=== PATIENT | female | born 1940 | race Caucasian/White ===

== ENCOUNTER → 2016-05-20 | Outpatient (CLI) | payer MEDICARE, OTHER ==
[~2016-05-20] MED LIST: ARIMIDEX1 MG PO; AVALIDE 12.5 MG1 TAB PO; CITRACAL + D CA1 TAB PO; CITRACAL PLUS1 TAB PO; COSAMIN DS 4001 TAB PO; COZAAR 50MG50 MG/TAB PO; JUICE PLUS; MOBIC 7.5MG7.5 MG PO; OMEGA-3 FISH1000 MG PO; PROBIOTIC FORMU1 CAP PO; PROBIOTICA100 Milli1; PROTONIX 40MG T40 MG PO; SYNTHROID0.075 MG/T PO; SYNTHROID0.088 MG/T PO; SYNTHROID0.1 MG/TAB PO; SYNTHROID0.112 MG/T PO; TOPROL XL 25MG25 MG PO; TURMERIC500 MG PO; VITAMIN D1000 IU PO; VITAMIN D31000 IU PO; [UNRECOGNIZED DRUG - OTHER] PO
== END ==
LOC: MC.RAD 13:00
DX: Z12.31 Encounter for screening mammogram for malignant neoplasm of breast (principal); Z85.3 Personal history of malignant neoplasm of breast

== ENCOUNTER → 2016-06-09 | Outpatient (CLI) | payer MEDICARE, OTHER ==
[~2016-06-09] VITALS: Ht 154.9 cm; Wt 83.7 kg
[2016-06-09 06:02] VITALS: BP 178/103; PULSE 78
== END ==
LOC: COL.CARD 05:45
DX: R94.31 Abnormal electrocardiogram [ECG] [EKG] (principal); R06.09 Other forms of dyspnea
CPT/HCPCS: A9502

== ENCOUNTER → 2016-08-27 | Outpatient (CLI) | payer MEDICARE, OTHER | LOC: COL.CARD 05:45 | DX: Z01.89 Encounter for other specified special examinations (principal) ==

== ENCOUNTER → 2017-05-24 | Outpatient (CLI) | payer MEDICARE, OTHER | LOC: MC.RAD 08:30 | DX: Z12.31 Encounter for screening mammogram for malignant neoplasm of breast (principal); Z85.3 Personal history of malignant neoplasm of breast; Z92.3 Personal history of irradiation; Z90.11 Acquired absence of right breast and nipple ==

== ENCOUNTER → 2018-05-26 | Outpatient (CLI) | payer MEDICARE, OTHER | LOC: MC.RAD 10:13 | DX: Z12.31 Encounter for screening mammogram for malignant neoplasm of breast (principal); C50.311 Malignant neoplasm of lower-inner quadrant of right female breast ==

== ENCOUNTER → 2018-08-22 | Outpatient (CLI) | payer MEDICARE, OTHER | LOC: COL.RAD 07:02 | DX: K82.8 Other specified diseases of gallbladder (principal) | CPT/HCPCS: A9537 ==

== ENCOUNTER → 2018-11-30 | Outpatient (CLI) | payer MEDICARE, OTHER | LOC: COL.RAD 10:00 | DX: M79.644 Pain in right finger(s) (principal); M79.645 Pain in left finger(s) | CPT/HCPCS: J3301; Q9967 ==

== ENCOUNTER → 2019-06-29 | Outpatient (CLI) | payer MEDICARE, OTHER | LOC: MC.RAD 05-30 09:30 | DX: Z12.31 Encounter for screening mammogram for malignant neoplasm of breast (principal); C50.311 Malignant neoplasm of lower-inner quadrant of right female breast; Z98.890 Other specified postprocedural states ==

== ENCOUNTER → 2019-11-10 | Outpatient (CLI) | payer MEDICARE | LOC: COL.RAD 13:15 | DX: Z01.812 Encounter for preprocedural laboratory examination (principal); R59.0 Localized enlarged lymph nodes; R91.1 Solitary pulmonary nodule | CPT/HCPCS: Q9967 ==

== ENCOUNTER → 2019-11-21 | Outpatient (CLI) | payer MEDICARE, OTHER ==
[~2019-11-21] MED LIST changes: +ASPIRIN 81M81 MG/TA2 PO; +BYSTOLIC10 MG PO; +CALCIUM CARBON650 M2 PO; +CARDIZEM LA240 MG PO; +CRESTOR 10MG10 MG PO; +DEXILANT60 MG PO; +PRINZIDE 12.5 M1 TAB PO; +THE MEDICINE S200 M2 PO; +VITAMIND3 5000 PO; +ZYLOPRIM 300MG300 MG PO; +[UNRECOGNIZED DRUG - OTHER]
[2019-11-21 08:15] VITALS: BP 155/81; PULSE 75
[2019-11-21 09:05] VITALS: BP 159/88; PULSE 79
[2019-11-21 09:10] VITALS: BP 143/73; PULSE 68
[2019-11-21 09:15] VITALS: BP 161/80; PULSE 74
[2019-11-21 09:20] VITALS: BP 156/82; PULSE 63
[2019-11-21 09:30] VITALS: BP 121/69; PULSE 63
== END ==
LOC: COL.RAD 08:15
DX: C50.919 Malignant neoplasm of unspecified site of unspecified female breast (principal); R59.0 Localized enlarged lymph nodes; R91.1 Solitary pulmonary nodule

== ENCOUNTER 2019-12-27 14:54 | Outpatient (RCR) | payer MEDICARE, OTHER ==
[2019-12-27] VITALS (9 sets, daily range): BP systolic 102–131; BP diastolic 51–84; PULSE 60–86; TEMP 97.9–98.5
== END 2019-12-27 19:11 | disposition home or self-care (01) ==
LOC: EUO 14:54
DX: C50.311 Malignant neoplasm of lower-inner quadrant of right female breast (principal)
CPT/HCPCS: J7050; P9040

== ENCOUNTER → 2020-01-18 | Outpatient (CLI) | payer MEDICARE, OTHER | LOC: COL.RAD 10:03 | DX: C50.919 Malignant neoplasm of unspecified site of unspecified female breast (principal); R91.8 Other nonspecific abnormal finding of lung field; Z98.82 Breast implant status | CPT/HCPCS: Q9967 ==

== ENCOUNTER 2020-02-15 08:01 | Outpatient (RCR) | payer MEDICARE, OTHER ==
[2020-02-15] VITALS (8 sets, daily range): BP systolic 113–136; BP diastolic 54–68; PULSE 59–65; TEMP 98.3–98.8
[~2020-02-15] VITALS: Ht 154.9 cm; Wt 80.8 kg
[~2020-02-15 08:01] MED LIST changes: -SYNTHROID0.088 MG/T PO
[2020-02-15] MEDS ORDERED: CORDARONE200 MG/TAB PO (10:04)
[2020-02-15] MEDS ORDERED: KISQALI400 MG PO (10:05)
[2020-02-15] MEDS ORDERED: DOXYCYCLINE 10100 MG PO (10:06)
--- NOTE | 2020-02-15 10:59 | NUR ---
PT TOLERATING TRANSFUSION WELL. DENIES NEEDS AT THIS TIME. PT IS SITTING UP IN RECLINER, EATING A SNACK. CALL LIGHT IN REACH.
--- NOTE | 2020-02-15 13:38 | NUR ---
PT HAS TOLERATED TRANSFUSIONS WELL, WITH NO ADVERSE REACTION. 2ND UNIT IS IN, AND LINE IS BEING FLUSHED AT THIS TIME. PT IS PREPARING FOR DEPARTURE. SHE HAS BEEN UP DURING TRANSFUSION AND IS STEADY ON HER FEET. DEPARTURE PENDING CLEARING OF LINE AND REMOVAL OF PERIPHERAL IV.
== END 2020-02-15 14:15 | disposition home or self-care (01) ==
LOC: EUO 08:01
DX: C50.311 Malignant neoplasm of lower-inner quadrant of right female breast (principal); C77.0 Secondary and unspecified malignant neoplasm of lymph nodes of head, face and neck; C77.1 Secondary and unspecified malignant neoplasm of intrathoracic lymph nodes; C78.02 Secondary malignant neoplasm of left lung; D64.9 Anemia, unspecified
CPT/HCPCS: J7050; P9016

== ENCOUNTER 2020-03-29 07:30 | Outpatient (RCR) | payer MEDICARE, OTHER ==
[2020-03-29] VITALS (11 sets, daily range): BP systolic 120–139; BP diastolic 51–64; PULSE 60–71; TEMP 97.3–98.3
[~2020-03-29] VITALS: Ht 154.9 cm; Wt 79.7 kg
[~2020-03-29 07:30] MED LIST changes: +CORDARONE200 MG/TAB PO; +DOXYCYCLINE 10100 MG PO; +KISQALI400 MG PO
== END 2020-03-29 14:45 | disposition home or self-care (01) ==
LOC: EUO 07:30
DX: C50.311 Malignant neoplasm of lower-inner quadrant of right female breast (principal)
CPT/HCPCS: J7050; P9016

== ENCOUNTER → 2020-04-16 | Outpatient (CLI) | payer MEDICARE, OTHER ==
[~2020-04-16] MED LIST changes: -PROBIOTIC FORMU1 CAP PO; +PROBIOTIC-MAJOR PO
== END ==
LOC: COL.RAD
DX: J38.00 Paralysis of vocal cords and larynx, unspecified (principal)

== ENCOUNTER 2020-04-18 08:13 | Outpatient (RCR) | payer MEDICARE, OTHER ==
[2020-04-18] VITALS (13 sets, daily range): BP systolic 100–141; BP diastolic 46–76; PULSE 60–93; TEMP 98.1–98.4
[~2020-04-18] VITALS: Ht 154.9 cm; Wt 76.3 kg
== END 2020-04-18 13:21 | disposition home or self-care (01) ==
LOC: EUO
DX: C50.311 Malignant neoplasm of lower-inner quadrant of right female breast (principal); D64.9 Anemia, unspecified
CPT/HCPCS: J7050; P9016

== ENCOUNTER 2020-05-08 07:30 | Outpatient (RCR) | payer MEDICARE, OTHER ==
[~2020-05-08] VITALS: Ht 154.9 cm; Wt 76.0 kg
[2020-05-08] VITALS (11 sets, daily range): BP systolic 82–136; BP diastolic 46–86; PULSE 60–75; TEMP 97.5–98.7
--- NOTE | 2020-05-08 11:01 | NUR ---
20 cc total of blood return from red port, flushed with NS.
--- NOTE | 2020-05-08 12:04 | NUR ---
infusion completed, line flushed and iv d'cd
== END 2020-05-16 16:17 | disposition home or self-care (01) ==
LOC: EUO 07:30
DX: C50.311 Malignant neoplasm of lower-inner quadrant of right female breast (principal); D64.9 Anemia, unspecified
CPT/HCPCS: J7050; P9016

== ENCOUNTER 2020-05-17 08:30 | Outpatient (RCR) | payer MEDICARE, OTHER ==
[2020-05-17] VITALS (9 sets, daily range): BP systolic 98–128; BP diastolic 57–76; PULSE 59–178; TEMP 97.7–97.9
[~2020-05-17] VITALS: Ht 154.9 cm; Wt 76.8 kg
== END 2020-05-17 12:50 | disposition home or self-care (01) ==
LOC: EUO 08:30 → EDSTATUS 10:00 → EUO 10:00
DX: C50.311 Malignant neoplasm of lower-inner quadrant of right female breast (principal); C77.0 Secondary and unspecified malignant neoplasm of lymph nodes of head, face and neck; C77.1 Secondary and unspecified malignant neoplasm of intrathoracic lymph nodes; C78.02 Secondary malignant neoplasm of left lung; D64.9 Anemia, unspecified
CPT/HCPCS: J7050; P9016

== ENCOUNTER 2020-06-03 08:45 | Outpatient (RCR) | payer MEDICARE, OTHER | END 2020-06-23 | disposition home or self-care (01) | LOC: WSST | DX: J38.00 Paralysis of vocal cords and larynx, unspecified (principal) ==

== ENCOUNTER 2020-07-24 09:00 | Outpatient (RCR) | payer MEDICARE, OTHER | END 2020-09-22 | disposition home or self-care (01) | LOC: WSST | DX: R49.0 Dysphonia (principal); R13.13 Dysphagia, pharyngeal phase; J38.00 Paralysis of vocal cords and larynx, unspecified ==

== ENCOUNTER → 2020-08-01 | Outpatient (CLI) | payer MEDICARE, OTHER | LOC: COL.RAD 07:52 | DX: C50.311 Malignant neoplasm of lower-inner quadrant of right female breast (principal); C79.51 Secondary malignant neoplasm of bone; R91.1 Solitary pulmonary nodule; R59.0 Localized enlarged lymph nodes | CPT/HCPCS: Q9967 ==

== ENCOUNTER 2020-11-14 10:00 | Outpatient (RCR) | payer MEDICARE, OTHER ==
[~2020-11-14] VITALS: Ht 154.9 cm; Wt 74.0 kg
[2020-11-14] VITALS (9 sets, daily range): BP systolic 115–162; BP diastolic 64–78; PULSE 60–66; TEMP 97.7–98.9
== END 2020-11-14 15:30 | disposition home or self-care (01) ==
LOC: EUO 10:00
DX: C50.311 Malignant neoplasm of lower-inner quadrant of right female breast (principal); D64.9 Anemia, unspecified
CPT/HCPCS: J7050; P9016

== ENCOUNTER 2021-01-30 23:06 | Emergency (ER) | payer MEDICARE, OTHER ==
[~2021-01-30] VITALS: Ht 154.9 cm; Wt 67.3 kg
[2021-01-30 23:14] VITALS: TEMP 98.6
[2021-01-30 23:51] LABS: BASO # 0.1 K/mm3 (0.0-0.2); EOS # 0.5 K/mm3 (0.0-0.7); GRAN # 3.8 K/mm3 (1.4-6.5); GRAN % 64.8 % (42.2-75.2); HEMOGLOBIN 12.3 g/dl (12.5-16.0); LYMPH # 0.6 K/mm3 (1.2-3.4); LYMPH % 9.5 % (20.0-51.0); MEAN CELL VOLUME 96 fl (80.0-100.0); MEAN CORPUSCULAR HEMOGLOBIN 32 pg (27-31); MEAN CORPUSCULAR HGB CONC 34 g/dl (33.0-37.0); MEAN PLATELET VOLUME 9.5 fl (7.4-10.4); MONO # 0.9 K/mm3 (0.1-0.6); MONO % 15.2 % (1.7-9.3); PLATELET COUNT 288 K/mm3 (130-400)
[2021-01-31 00:22] LABS: HEMATOCRIT 36.6 % (37.0-47.0)
[2021-01-31] MEDS ORDERED: AMOXICILLIN 8751 TAB PO (01:26)
[2021-01-31 02:21] VITALS: BP 125/69; PULSE 61
== END 2021-01-31 02:22 | disposition home or self-care (01) ==
LOC: COL.ER 23:06
PROVIDERS: Emergency Medicine
DX: R04.0 Epistaxis (principal); I25.10 Atherosclerotic heart disease of native coronary artery without angina pectoris; Z91.040 Latex allergy status; Z79.82 Long term (current) use of aspirin

== ENCOUNTER 2021-03-14 09:52 | Emergency (ER) | payer MEDICARE, OTHER ==
[~2021-03-14] VITALS: Ht 154.9 cm; Wt 63.6 kg
[~2021-03-14 09:52] MED LIST changes: +AMOXICILLIN 8751 TAB PO
[2021-03-14 10:01] VITALS: TEMP 97.8
[2021-03-14 11:22] VITALS: BP 131/54; PULSE 64
== END 2021-03-14 11:22 | disposition home or self-care (01) ==
LOC: COL.ER 09:52
DX: M79.604 Pain in right leg (principal); Z88.5 Allergy status to narcotic agent

== ENCOUNTER → 2021-05-30 | Outpatient (CLI) | payer MEDICARE, OTHER ==
[~2021-05-30] MED LIST changes: +CALCIUM PO; +CARDIZEM CD 12120 MG PO; +DIGITEK0.125 MG PO; +FASLODEX250 MG/5 M IM; +LASIX 20MG TABL20 MG PO; +PIQRAY1 EACH PO; +PROTONIX20 MG PO; +XGEVA120 MG/1.7 SQ; +ZOFRAN ODT4 MG PO; +ZYRTEC 10MG10 MG PO
== END ==
LOC: COL.RAD 09:41
DX: S32.484D Nondisplaced dome fracture of right acetabulum, subsequent encounter for fracture with routine healing (principal)
CPT/HCPCS: A9503

== ENCOUNTER 2021-06-04 10:45 | Emergency (ER) | payer MEDICARE, OTHER ==
[~2021-06-04] VITALS: Ht 154.9 cm; Wt 58.2 kg
[~2021-06-04 10:45] MED LIST changes: -CALCIUM PO; -LASIX 20MG TABL20 MG PO; -PROTONIX20 MG PO; -ZOFRAN ODT4 MG PO
[2021-06-04 10:46] VITALS: TEMP 98.3
[2021-06-04 11:20] LABS: HEMOGLOBIN 12.1 g/dl (12.5-16.0); MEAN CELL VOLUME 101 fl (80.0-100.0); MEAN CORPUSCULAR HEMOGLOBIN 34 pg (27-31); MEAN CORPUSCULAR HGB CONC 33 g/dl (33.0-37.0); PLATELET COUNT 287 K/mm3 (130-400); REDCELL DISTRIBUTION WIDTH-CV 15.3 % (11.5-14.5)
[2021-06-04 11:24] LABS: HEMATOCRIT 36.5 % (37.0-47.0)
[2021-06-04 11:41] LABS: ALBUMIN 3.2 gm/dL (3.4-4.8); BILIRUBIN,TOTAL 0.8 mg/dL (0.2-1.2); CALCIUM 8.5 mg/dL (8.4-10.2); CREATININE, serum 1.12 mg/dL (0.57-1.11); POTASSIUM 4.5 mmol/L (3.5-4.5)
[2021-06-04 11:56] LABS: BAND 1 % (0-10); EOSINOPHIL 1 % (0-4); LYMPHOCYTE 3 % (20.0-51.0); NEUTROPHILS 90 % (42.0-75.2)
[2021-06-04 11:57] LABS: ANISOCYTOSIS 1+; PLATELET ESTIMATE NORMAL (NORMAL)
[2021-06-04] MEDS ORDERED: ZOFRAN ODT4 MG PO (13:19)
[2021-06-04 13:58] VITALS: BP 139/78; PULSE 87
[2021-06-05] MEDS ORDERED: PROTONIX20 MG PO (07:17)
[2021-06-05] MEDS ORDERED: LASIX 20MG TABL20 MG PO (20:35)
[2021-06-05] MEDS ORDERED: CALCIUM PO (20:36)
[2021-06-07] VITALS (46 sets, daily range): O2SAT 91–98
[2021-06-08] VITALS (96 sets, daily range): O2SAT 93–97
[2021-06-11] VITALS (32 sets, daily range): O2SAT 97–100
[2021-06-13] VITALS (286 sets, daily range): O2SAT 96–100
== END 2021-06-04 13:58 | disposition home or self-care (01) ==
LOC: COL.ER 10:45
PROVIDERS: Nurse Practitioner Family
DX: K29.70 Gastritis, unspecified, without bleeding (principal); C50.919 Malignant neoplasm of unspecified site of unspecified female breast; Z91.040 Latex allergy status
CPT/HCPCS: C9113; J2405; J7040

== ENCOUNTER 2021-06-05 04:49 | Inpatient (IN) | payer MEDICARE, OTHER ==
[~2021-06-05] VITALS: Ht 154.9 cm; Wt 61.8 kg
[2021-06-05] VITALS (366 sets, daily range): BP systolic 109–111; BP diastolic 50–62; PULSE 80–91; TEMP 97.6; O2SAT 73–95
[~2021-06-05 04:49] MED LIST changes: +ZOFRAN ODT4 MG PO
[2021-06-05 05:29] LABS: ARTERIAL BLD GAS O2 SATURATION 90.7 % (92-100); ARTERIAL BLOOD GAS BASE EXCESS -4.9 (-2-2); ARTERIAL BLOOD GAS PCO2 31.8 mmHg (35-45); ARTERIAL BLOOD GAS PO2 58.5 mmHg (80-100)
[2021-06-05 05:56] LABS: HEMATOCRIT 36.6 % (37.0-47.0); HEMOGLOBIN 12.2 g/dl (12.5-16.0); MEAN CELL VOLUME 102 fl (80.0-100.0); MEAN CORPUSCULAR HEMOGLOBIN 34 pg (27-31); MEAN CORPUSCULAR HGB CONC 33 g/dl (33.0-37.0); MEAN PLATELET VOLUME 10.8 fl (7.4-10.4); PLATELET COUNT 303 K/mm3 (130-400); RED BLOOD COUNT 3.59 M/mm3 (4.10-5.30); REDCELL DISTRIBUTION WIDTH-CV 15.9 % (11.5-14.5)
[2021-06-05 06:03] LABS: INR 1.3 (0.8-3.0); PROTHROMBIN TIME 13.9 SECONDS (9.7-12.8)
[2021-06-05 06:09] LABS: BAND 18 % (0-10); LYMPHOCYTE 2 % (20.0-51.0); METAMYELOCYTE 1 % (0-0); NEUTROPHILS 75 % (42.0-75.2)
[2021-06-05 06:10] LABS: POLYCHROMASIA 1+; SCHISTOCYTES 1+; TARGET CELLS 1+; TEAR DROP CELLS 1+
[2021-06-05 06:29] LABS: BILIRUBIN,TOTAL 0.8 mg/dL (0.2-1.2); CALCIUM 8.7 mg/dL (8.4-10.2); CREATININE, serum 1.39 mg/dL (0.57-1.11); POTASSIUM 4.4 mmol/L (3.5-4.5)
[2021-06-05 06:43] LABS: TROPONIN-I 0.077 ng/mL (0.00-0.033)
[2021-06-05] MEDS ORDERED: PROTONIX20 MG PO (07:17)
[2021-06-05] MEDS ORDERED: LASIX 20MG TABL20 MG PO (20:35)
[2021-06-05] MEDS ORDERED: CALCIUM PO (20:36)
[2021-06-05 21:08] LABS: MUCOUS Present (NOT PRESENT); PH 5 (5-8); SQUAMOUS EPITHELIAL None Seen /hpf (0-10); URINE APPEARANCE Cloudy (CLEAR/HAZY); URINE BACTERIA None Seen /hpf (NONE SEEN); URINE BILIRUBIN Negative (NEGATIVE); URINE BLOOD Negative (NEGATIVE); URINE COLOR Yellow (YELLOW); URINE GLUCOSE Negative (NEGATIVE); URINE KETONE Trace (NEGATIVE); URINE LEUKOCYTE ESTERASE Trace (NEGATIVE); URINE NITRATE Negative (NEGATIVE); URINE PROTEIN(semi-quant) 1+ (NEGATIVE); URINE RBC 0-2 /hpf (0-2); URINE UROBILINOGEN Negative (NEGATIVE)
[2021-06-05 21:19] LABS: COLLECTION METHOD CLEAN CATCH
[2021-06-06] VITALS (1178 sets, daily range): BP systolic 114–143; BP diastolic 63–93; PULSE 82–100; TEMP 97–99; O2SAT 50–99
--- NOTE | 2021-06-06 00:04 | NUR ---
PATIENT'S OXYGEN SATURATIONS IN MID-HIGH 80'S WITH ANY ACTIVITY HOWEVER BREATHING DOES NOT APPEAR LABORED AT THIS TIME. SPOKE WITH ICU RT. PATIENT CONTINUES TO REFUSE OPTIFLOW/AIRVO DUE TO HER CONCERN FOR NOSEBLEEDS. PATIENT WAS EDUCATED ON IMPORTANCE OF OXYGENATION. WILL CONTINUE TO MONITOR.
--- NOTE | 2021-06-06 04:09 | NUR ---
PATIENT OFFERED BATH AND ASSISTANCE WITH ADL'S AT START OF SHIFT. PATIENT STATED SHE WOULD LIKE TO WAIT UNTIL LATER. RN OFFERED BATH AGAIN AROUND 4 AM. PATIENT STATES THAT SHE WILL "WAIT UNTIL MORNING." PATIENT CONTINUES TO REFUSE TO CHANGE OUT OF STREET CLOTHES INTO GOWN.
[2021-06-06 05:55] LABS: MEAN CELL VOLUME 100 fl (80.0-100.0); MEAN CORPUSCULAR HEMOGLOBIN 33 pg (27-31); MEAN CORPUSCULAR HGB CONC 33 g/dl (33.0-37.0); MEAN PLATELET VOLUME 10.6 fl (7.4-10.4); PLATELET COUNT 250 K/mm3 (130-400); RED BLOOD COUNT 3.29 M/mm3 (4.10-5.30); REDCELL DISTRIBUTION WIDTH-CV 15.4 % (11.5-14.5)
[2021-06-06 07:47] LABS: BAND 35 % (0-10); LYMPHOCYTE 3 % (20.0-51.0); NEUTROPHILS 57 % (42.0-75.2)
[2021-06-06 07:48] LABS: ANISOCYTOSIS 1+
--- NOTE | 2021-06-06 08:52 | NUR ---
Patient prescribed chemotherapy agent and is to be on chemo precautions when handling stool; ongoing. Notified care team and placed sign outside patient room.
--- NOTE | 2021-06-06 09:40 | NUR ---
youth accommodation support worker met with patient's daughter, Marie Scott to complete initial intake for discharge planning. Patient is currently placed in COVID isolation and being tested this am. Patient and spouse had a known exposure with a person that is COVID positive. Patient resides at home with her spouse and has a diagnosis of metastatic breast cancer. Patient's primary care provider is Dr Rodriguez. Daughter will inquire if there are advance directives and obtain copies for the hospital. Patient and spouse have two children, Marie and a son, Harvey.
--- NOTE | 2021-06-06 10:43 | NUR ---
electrical worker obtained copies of patient's Living Will and Durable Power of [employer] and placed on patient's medical record.
[2021-06-06 12:18] LABS: CREATININE, serum 1.18 mg/dL (0.57-1.11); POTASSIUM 3.8 mmol/L (3.5-4.5)
[2021-06-06 12:19] LABS: C-REACTIVE PROTEIN 46.76 mg/dL (0.00-0.50)
--- NOTE | 2021-06-06 23:01 | NUR ---
ASSESSMENT COMPLETE. PATIENT ON 100% BIPAP WITH O2 SATURATIONS IN THE HIGH 80'S, BEDSIDE RN HAS NOT SEEN SAT ABOVE 91%. PATIENT AND DAUGHTER BOTH ADAMANT THAT BIPAP MASK NEEDS TO BE REMOVED "EVERY 3O MINUTES" SO THAT THE PATIENT CAN HAVE A DRINK OF WATER. I PROVIDED EXTENSIVE EDUCATION ON WHY THIS IS NOT A SAFE IDEA. I ATTEMPTED TO GIVE THE PATIENT A BREAK FROM HER BIPAP TO DRINK HER MIRALAX. HOWEVER, EVEN WHILE ON 15L HFNC, PATIENT SATURATIONS DROPPED TO THE HIGH 70'S WITHIN A MINUTE. PATIENT PLACED BACK ON BIPAP, HOSPITALIST AWARE AND AGREES THAT PATIENT SHOULD NOT BE TAKEN OFF BIPAP TO DRINK. ALL OF THIS WAS ONCE AGAIN EXPLAINED TO THE PATIENT AND HER DAUGHTER. BOTH EXPRESSED UNDERSTANDING FOR OUR SAFETY CONCERNS. WILL CONTINUE TO MONITOR PATIENT.
[2021-06-07] VITALS (1337 sets, daily range): BP systolic 70–188; BP diastolic 44–94; PULSE 65–82; TEMP 97.1–98; O2SAT 77–100
--- NOTE | 2021-06-07 07:00 | NUR ---
BEDSIDE REPORT RECEIVED FROM ARON CLEMENTS. RN REPORTS THAT PT STRUGGLED TO KEEP SPO2 ABOUT 90% FOR MAJORITY OF NIGHT. SATS WERE ABOUT 80-87%. PT BECAME MORE LETHARGIC NIGHT WENT ON. RT SPEAKING WITH DR. VAUGHN REGUARDING ABG RESULTS AT THIS TIME. DR. VAUGHN WOULD LIKE PT'S FAMILY CALLED AND TO HAVE THEM COME IN TO DISCUSS INTUBATION. PT CURRENTLY ON BIPAP AT 100%. FC TO DEPENDENT DRAINAGE. 20G PIV TO RIGHT AC. 22G PIV TO RIGHT WRIST. PT LIES SUPINE WITH HOB ELEVATED.
[2021-06-07 07:04] LABS: ARTERIAL BLOOD GAS BASE EXCESS -6.7 (-2-2); ARTERIAL BLOOD GAS HCO3 23.3 meq/L (22-26); ARTERIAL BLOOD GAS PCO2 72.1 mmHg (35-45); ARTERIAL BLOOD GAS PO2 74.2 mmHg (80-100); ARTERIAL BLOOD GAS pH 7.13 (7.35-7.45)
[2021-06-07 07:05] LABS: ARTERIAL BLD GAS O2 SATURATION 92.8 % (92-100)
[2021-06-07 07:15] LABS: HEMOGLOBIN 11.2 g/dl (12.5-16.0); MEAN CELL VOLUME 103 fl (80.0-100.0); MEAN CORPUSCULAR HEMOGLOBIN 34 pg (27-31); MEAN CORPUSCULAR HGB CONC 33 g/dl (33.0-37.0); MEAN PLATELET VOLUME 10.3 fl (7.4-10.4); PLATELET COUNT 268 K/mm3 (130-400); RED BLOOD COUNT 3.33 M/mm3 (4.10-5.30); REDCELL DISTRIBUTION WIDTH-CV 16.2 % (11.5-14.5)
[2021-06-07 07:27] LABS: HEMATOCRIT 34.2 % (37.0-47.0)
[2021-06-07 07:34] LABS: BAND 6 % (0-10); NEUTROPHILS 87 % (42.0-75.2)
[2021-06-07 07:35] LABS: ANISOCYTOSIS 1+; LYMPHOCYTE 3 % (20.0-51.0); PLATELET ESTIMATE NORMAL (NORMAL); TARGET CELLS 1+
[2021-06-07 07:36] LABS: CALCIUM 8.1 mg/dL (8.4-10.2); CREATININE, serum 1.47 mg/dL (0.57-1.11); MAGNESIUM 2.6 mg/dL (1.6-2.6); POTASSIUM 3.9 mmol/L (3.5-4.5)
--- NOTE | 2021-06-07 08:00 | NUR ---
PT UNABLE TO MAKE DECISION FOR INTUBATION DUE TO BEING LETHARGIC AND CONFUSED. DR. VAUGHN SPOKE EXTRENSIVELY WITH PT'S , DAUGHTER, AND SON. DECISION WAS MADE BY THEM TO INTUBATE PT AND PLACE ON VENTILATOR. CONSENT WAS ALSO RECEIVED FOR CENTRAL LINE AND ARTERAL LINE AT THIS TIME.
--- NOTE | 2021-06-07 09:09 | NUR ---
PREPPING PT FOR INTUBATION AT THIS TIME. PT CURRENTLY ON BIPAP AT 100% FIO2. 0910: 100MCG FENTANYL IVP, [id number] IVP, SUCCINYLCHOLINE 80MG IV, ALL GIVEN BY FLOR ROBERTS. 0911: PT INTUBATED WITH 7.0 ETT, 22CM AT THE TEETH. GOOD COLOR CHANGE. BREATH SOUNDS VERIFIED BILATERALLY. 0913: ETT SECURED. PT CONNECTED TO VENT. 0915: DR. OQUENDO ENTERS PT'S ROOM AND BEGINS CENTRAL LINE PLACEMENT.
--- NOTE | 2021-06-07 09:27 | NUR ---
PT INTUBATED 0911, 7.0 ETT 22 @TEETH. VENT SETTINGS GIVEN PER DR VAUGHN, INC AND LEFT SETTINGS AT 450, RR24, +8, 100%. WILL FOLLOW UP WITH BLOOD GAS.
[2021-06-07 10:24] LABS: ARTERIAL BLD GAS O2 SATURATION 94.8 % (92-100); ARTERIAL BLD GAS TCO2 CT 21.1; ARTERIAL BLOOD GAS BASE EXCESS -3.9 (-2-2); ARTERIAL BLOOD GAS HCO3 20.1 meq/L (22-26); ARTERIAL BLOOD GAS PCO2 32.6 mmHg (35-45); ARTERIAL BLOOD GAS PO2 63.1 mmHg (80-100); ARTERIAL BLOOD GAS pH 7.41 (7.35-7.45)
--- NOTE | 2021-06-07 11:17 | NUR ---
Initial visit; Patient's family were thankful for prayer for Robyn and them and for suggesting Cruise Agent call family's Practice Billing Associate. Cruise Agent stayed with family until they went back into Robyn' room then checked on them again later.
[2021-06-07 15:28] LABS: ARTERIAL BLD GAS O2 SATURATION 98.7 % (92-100); ARTERIAL BLD GAS TCO2 CT 19.3; ARTERIAL BLOOD GAS BASE EXCESS -5.4 (-2-2); ARTERIAL BLOOD GAS HCO3 18.4 meq/L (22-26); ARTERIAL BLOOD GAS PO2 136.4 mmHg (80-100); ARTERIAL BLOOD GAS pH 7.39 (7.35-7.45)
--- NOTE | 2021-06-07 21:01 | NUR ---
ASSESSMET COMPLETE. PATIENT INTUBATED AND SEDATED. VITAL SIGNS STABLE. PATIENT REMAINS ON LEVOPHED. NO ACUTE DISTRESS. NO RESIDUALS FROM OG, TUBE FEEDS INCREASED TO 25ML/HR AT THIS TIME.
[2021-06-08] VITALS (1328 sets, daily range): BP systolic 114–149; BP diastolic 61–75; PULSE 81–89; TEMP 97.8–98.6; O2SAT 84–100
[2021-06-08 03:46] LABS: ARTERIAL BLD GAS O2 SATURATION 92.8 % (92-100); ARTERIAL BLD GAS TCO2 CT 22.5; ARTERIAL BLOOD GAS BASE EXCESS -2.1 (-2-2); ARTERIAL BLOOD GAS HCO3 21.5 meq/L (22-26); ARTERIAL BLOOD GAS PCO2 32.5 mmHg (35-45); ARTERIAL BLOOD GAS PO2 58.5 mmHg (80-100); ARTERIAL BLOOD GAS pH 7.44 (7.35-7.45)
[2021-06-08 05:03] LABS: HEMOGLOBIN 10.3 g/dl (12.5-16.0); MEAN CELL VOLUME 99 fl (80.0-100.0); MEAN CORPUSCULAR HEMOGLOBIN 33 pg (27-31); MEAN CORPUSCULAR HGB CONC 33 g/dl (33.0-37.0); PLATELET COUNT 252 K/mm3 (130-400); RED BLOOD COUNT 3.11 M/mm3 (4.10-5.30); REDCELL DISTRIBUTION WIDTH-CV 15.7 % (11.5-14.5)
[2021-06-08 05:06] LABS: HEMATOCRIT 30.9 % (37.0-47.0)
[2021-06-08 05:26] LABS: CALCIUM 7.5 mg/dL (8.4-10.2); CREATININE, serum 1.29 mg/dL (0.57-1.11); MAGNESIUM 2.1 mg/dL (1.6-2.6); PHOSPHOROUS 1.9 mg/dL (2.3-4.7); POTASSIUM 3.4 mmol/L (3.5-4.5)
[2021-06-08 05:27] LABS: BAND 6 % (0-10); NEUTROPHILS 90 % (42.0-75.2); NUCLEATED RED BLOOD CELL 2 (0-6); PLATELET ESTIMATE NORMAL (NORMAL)
--- NOTE | 2021-06-08 07:00 | NUR ---
BEDSIDE REPORT RECEIVED FROM ARON CLEMENTS. PT HAD UNEVENTFUL NIGHT. LEVOPHED WAS ABLE TO BE TURNED OFF. RIGHT TRIPLE LUMEN IJ IN PLACE; SEE GTT FLOW SHEET FOR INFUSIONS AND RATES. 20G PIV TO RIGHT AC. FC TO DEPENDENT DRAINAGE. 7.0 ETT 21CM AT TEETH WITH CURRENT VENT SETTINGS; FIO2 50%, RATE 24, PEEP 8, TV 450. PT ACCEPTING MECHANICAL VENTILATION; NO SIGNS OR SYMPTOMS OF DISCOMFORT. VITAL SIGNS WITHIN NORMAL LIMITS. PT LIES TURNED TO LEFT SIDE WITH HOB ELEVATED. OG TUBE IN PLACE; 52CM AT TEETH. TUBE FEEDS INFUSING AT 40ML/HR WITH Q4HR 30ML WATER FLUSHES.
[2021-06-09] VITALS (1400 sets, daily range): BP systolic 93–132; BP diastolic 49–72; PULSE 79–93; TEMP 36–36.1; O2SAT 88–100
[2021-06-09 04:58] LABS: ARTERIAL BLD GAS O2 SATURATION 97.2 % (92-100); ARTERIAL BLD GAS TCO2 CT 22.8; ARTERIAL BLOOD GAS BASE EXCESS -3.8 (-2-2); ARTERIAL BLOOD GAS HCO3 21.6 meq/L (22-26); ARTERIAL BLOOD GAS PCO2 40.4 mmHg (35-45); ARTERIAL BLOOD GAS PO2 95.3 mmHg (80-100); ARTERIAL BLOOD GAS pH 7.35 (7.35-7.45)
[2021-06-09 05:15] LABS: MEAN CELL VOLUME 98 fl (80.0-100.0); MEAN CORPUSCULAR HGB CONC 34 g/dl (33.0-37.0); PLATELET COUNT 210 K/mm3 (130-400); RED BLOOD COUNT 2.91 M/mm3 (4.10-5.30); REDCELL DISTRIBUTION WIDTH-CV 16.1 % (11.5-14.5)
[2021-06-09 05:22] LABS: HEMATOCRIT 28.5 % (37.0-47.0); HEMOGLOBIN 9.7 g/dl (12.5-16.0); MEAN CORPUSCULAR HEMOGLOBIN 33 pg (27-31)
[2021-06-09 05:37] LABS: ALBUMIN 1.8 gm/dL (3.4-4.8); BILIRUBIN,TOTAL 0.7 mg/dL (0.2-1.2); C-REACTIVE PROTEIN 30.21 mg/dL (0.00-0.50); CALCIUM 7.5 mg/dL (8.4-10.2); CREATININE, serum 1.43 mg/dL (0.57-1.11); MAGNESIUM 2.2 mg/dL (1.6-2.6); PHOSPHOROUS 2.8 mg/dL (2.3-4.7); POTASSIUM 4.2 mmol/L (3.5-4.5); TOTAL PROTEIN 5.5 gm/dL (6.2-8.1)
[2021-06-09 05:39] LABS: BAND 10 % (0-10); LYMPHOCYTE 4 % (20.0-51.0); MYELOCYTE 2 % (0-0); NEUTROPHILS 84 % (42.0-75.2); NUCLEATED RED BLOOD CELL 4 (0-6); OVALOCYTES 1+; SCHISTOCYTES 1+
[2021-06-09 05:40] LABS: TARGET CELLS 2+
--- NOTE | 2021-06-09 06:32 | NUR ---
ASSUMED CARE OF PATIENT AFTER RECEIVING BEDSIDE REPORT. ASSESSMENT COMPLETED, VSS. PATIENT TOLERATED VENT WELL. DURING SEDATION VACATION PATIENT RESPONDED APPROPRIATELY AND FOLLOWED COMMANDS. THIS RN HAD A LENGTHY CONVERSATION WITH PATIENT'S DAUGHTER AND ANSWERED ALL QUESTIONS. VISITOR PRATEEK REINFORCED. BEDSIDE REPORT TO BE GIVEN TO ONCOMING SHIFT. NO ACUTE EVENTS OVERNIGHT
--- NOTE | 2021-06-09 09:18 | NUR ---
Patient receiving chemotherapy agent. Chemo precautions to be followed for handling urine and feces; ongoing. Notified care team and placed sign outside patient room.
--- NOTE | 2021-06-09 09:52 | NUR ---
BEDSIDE SHIFT REPORT RECEIVED FROM REANNA SHARP. PT SLEEPING, RESTRAINTS IN PLACE, LINES RUNNING APPROPRIATELY (SEE DRIP FLOWSHEET), ET AND OG TUBE PLACEMENT APPROPPRIATE TO REPORT, VENT SETTINGS APPROPRIATE TO REPORT. VSS NO ACUTE CHANGE OVERNIGHT
--- NOTE | 2021-06-09 11:16 | NUR ---
Patient still currently on mechanical vent. [employer] found on patients chart, listing: Victoriano [phone] as her primary agent and Marie [phone] as her secondary agent.
[2021-06-09 12:46] LABS: PROTHROMBIN TIME 10.9 SECONDS (9.7-12.8)
[2021-06-09 13:58] LABS: PLEURAL FLUID RBC 5000 /mm3 (0-0); PLEURAL FLUID WBC 1362 /mm3
[2021-06-09 14:00] LABS: PLEURAL FLUID APPEARANCE HAZY; PLEURAL FLUID COLOR YELLOW
[2021-06-10] VITALS (1180 sets, daily range): BP systolic 90–165; BP diastolic 52–81; PULSE 75–101; TEMP 35.8–36.5; O2SAT 92–100
[2021-06-10 04:43] LABS: ARTERIAL BLD GAS O2 SATURATION 98.9 % (92-100); ARTERIAL BLD GAS TCO2 CT 22.8; ARTERIAL BLOOD GAS BASE EXCESS -1.6 (-2-2); ARTERIAL BLOOD GAS HCO3 21.8 meq/L (22-26); ARTERIAL BLOOD GAS PCO2 31.9 mmHg (35-45); ARTERIAL BLOOD GAS pH 7.45 (7.35-7.45)
[2021-06-10 04:44] LABS: ARTERIAL BLOOD GAS PO2 184.6 mmHg (80-100)
--- NOTE | 2021-06-10 05:08 | NUR ---
PT NOT APPLICABLE TO WEAN OFF VENT AT THIS TIME
[2021-06-10 05:09] LABS: MEAN CELL VOLUME 100 fl (80.0-100.0); MEAN CORPUSCULAR HGB CONC 33 g/dl (33.0-37.0); MEAN PLATELET VOLUME 11.9 fl (7.4-10.4); PLATELET COUNT 164 K/mm3 (130-400); RED BLOOD COUNT 2.73 M/mm3 (4.10-5.30); REDCELL DISTRIBUTION WIDTH-CV 16.1 % (11.5-14.5)
[2021-06-10 05:15] LABS: HEMATOCRIT 27.3 % (37.0-47.0); HEMOGLOBIN 9.1 g/dl (12.5-16.0); MEAN CORPUSCULAR HEMOGLOBIN 33 pg (27-31)
--- NOTE | 2021-06-10 05:20 | NUR ---
SEDATION VACATION SEDATION STOPPED FOR 30 MINUTES. PATIENT OPENED EYES SPONTANEOUSLY BUT WAS ONLY ABLE TO FOLLOW SOME COMMANDS. PATIENT DID SQUEEZE HANDS BUT WOULD NOT MOVE FEET OR LIFT HEAD.
[2021-06-10 05:27] LABS: CALCIUM 7.4 mg/dL (8.4-10.2); CREATININE, serum 1.25 mg/dL (0.57-1.11); MAGNESIUM 2.2 mg/dL (1.6-2.6); PHOSPHOROUS 2.8 mg/dL (2.3-4.7); POTASSIUM 4.3 mmol/L (3.5-4.5)
[2021-06-10 06:05] LABS: BAND 23 % (0-10); LYMPHOCYTE 2 % (20.0-51.0); METAMYELOCYTE 2 % (0-0); NEUTROPHILS 70 % (42.0-75.2); NUCLEATED RED BLOOD CELL 2 (0-6)
[2021-06-10 06:06] LABS: ANISOCYTOSIS 1+; BURR CELLS 1+; TARGET CELLS 1+
[2021-06-10 06:07] LABS: PLATELET ESTIMATE NORMAL (NORMAL)
--- NOTE | 2021-06-10 08:39 | NUR ---
CONTACTED INFECTION DISEASE FOR CONSULT 06/09/21. NO ORDERS RECIEVED
--- NOTE | 2021-06-10 10:12 | NUR ---
BEDSIDE SHIFT REPORT RECEIVED FROM REANNA SHARP. PT CURRENTLY VENTED WITH SETTINGS ACCORDING TO REPORT. ALL LINES RUNNING APPROPRIATELY (SEE DRIP FLOW SHEET). NUÑEZ DRAINING APPROPRIATELY. NO ACUTE CHANGES OVERNIGHT. SON AND AT BEDSIDE TODAY
--- NOTE | 2021-06-10 10:33 | NUR ---
Patients son Harvey present in room. This SW stopped in to introduce myself and inform him of our room on the team.
--- NOTE | 2021-06-10 13:45 | NUR ---
personnel worker contacted the patients Victoriano to introduce myself and address any questions or concerns he had at this time. Victoriano denies any needs at this time. Encouraged him to reach out with any questions.
--- NOTE | 2021-06-10 14:08 | NUR ---
called Dr. Ryan's office and spoke with nurse per family's request. discussed possible consult at hospital. nurse at Dr. Ryan's office stated she would discuss with the doctor and call this nurse back. awaiting call back currently
--- NOTE | 2021-06-10 15:14 | NUR ---
SPOKE WITH THE NURSE OF DR YANG, PER HER REPORT DR YANG WILL BE CALLING [facility] TO SPEAK WITH HIM PERSONALLY.
--- NOTE | 2021-06-10 20:45 | NUR ---
Assessment complete and charted. Patient alert and follows staff with eyes but does not follow commands. Repositioned at this time.
--- NOTE | 2021-06-10 22:53 | NUR ---
Patient daughter Marie called. Full updated provided including, vital signs, vent settings, sedation rates, and positioning of patient. All questions answered at this time.
--- NOTE | 2021-06-10 23:10 | NUR ---
Restarted patient versed at this time due to vital signs. Patient awakens easily, does not follow commands.
[2021-06-11] VITALS (793 sets, daily range): BP systolic 111–150; BP diastolic 52–856; PULSE 79–100; TEMP 97–99.3; O2SAT 94–100
[2021-06-11 04:44] LABS: ARTERIAL BLD GAS O2 SATURATION 96.3 % (92-100); ARTERIAL BLD GAS TCO2 CT 23.2; ARTERIAL BLOOD GAS BASE EXCESS -2.1 (-2-2); ARTERIAL BLOOD GAS HCO3 22.1 meq/L (22-26); ARTERIAL BLOOD GAS PCO2 35.3 mmHg (35-45); ARTERIAL BLOOD GAS pH 7.41 (7.35-7.45)
--- NOTE | 2021-06-11 05:01 | NUR ---
Patient awakens with current sedation. Able to follow staff with eye sight. Unable to follow commands. No change from previous neruo assessment without versed earlier in night.
[2021-06-11 06:28] LABS: MEAN CELL VOLUME 100 fl (80.0-100.0); MEAN CORPUSCULAR HGB CONC 33 g/dl (33.0-37.0); MEAN PLATELET VOLUME 12.4 fl (7.4-10.4); PLATELET COUNT 137 K/mm3 (130-400); RED BLOOD COUNT 2.34 M/mm3 (4.10-5.30); REDCELL DISTRIBUTION WIDTH-CV 16.3 % (11.5-14.5)
[2021-06-11 06:32] LABS: HEMATOCRIT 23.4 % (37.0-47.0); HEMOGLOBIN 7.8 g/dl (12.5-16.0); MEAN CORPUSCULAR HEMOGLOBIN 33 pg (27-31)
[2021-06-11 06:41] LABS: CALCIUM 7.4 mg/dL (8.4-10.2); CREATININE, serum 1.33 mg/dL (0.57-1.11); POTASSIUM 4.3 mmol/L (3.5-4.5)
--- NOTE | 2021-06-11 07:00 | NUR ---
BEDSIDE REPORT RECEIVED FROM ARON AGUILAR. 7.0 ETT 22CM AT TEETH WITH VENT SETTINGS; AC MODE, TV 450, PEEP 7, FIO2 40%, AND RATE 24. RIJ TLC WITH MEDICATIONS INFUSING; SEE GTT FLOW SHEET. OG 52CM AT TEETH WITH TF INFUSING AT 40ML/HR. FC TO DEPENDENT DRAINAGE. PT LIES SUPINE WITH HOB ELEVATED. NO S/S DISCOMFORT. PT ACCEPTING MECHANICAL VENTILATION.
[2021-06-11 07:03] LABS: BAND 11 % (0-10); LYMPHOCYTE 3 % (20.0-51.0); NEUTROPHILS 83 % (42.0-75.2); NUCLEATED RED BLOOD CELL 16 (0-6)
[2021-06-11 07:04] LABS: OVALOCYTES 1+; PLATELET ESTIMATE NORMAL (NORMAL); POIKILOCYTOSIS 2+; TARGET CELLS 2+
[2021-06-11 07:05] LABS: POLYCHROMASIA 1+
--- NOTE | 2021-06-11 07:06 | NUR ---
Report given to ARON Wu
[2021-06-11 08:02] LABS: PATHOLOGY DIFF REVIEW OK
[2021-06-11 18:20] LABS: HEMATOCRIT 26.5 % (37.0-47.0); HEMOGLOBIN 8.7 g/dl (12.5-16.0)
--- NOTE | 2021-06-11 19:19 | NUR ---
Report given to ARON Wiggins.
--- NOTE | 2021-06-11 20:46 | NUR ---
Assessment complete and charted. Residual 495. Tube feeds on hold. Amanda BAXTER aware.
--- NOTE | 2021-06-11 20:57 | NUR ---
Prior to patient daughter leaving this evening she voiced concerns regarding patient temp (99.5), pulse (101), and BP 150s. After assessing patient daughter was called and updated regarding vital signs. All questions answered. Patient vitals normalizing (see recent set charted).
[2021-06-12] VITALS (1070 sets, daily range): BP systolic 102–145; BP diastolic 60–80; PULSE 88–104; TEMP 97–97.9; O2SAT 95–100
--- NOTE | 2021-06-12 04:22 | NUR ---
pt unable to wean at this time
[2021-06-12 05:29] LABS: ARTERIAL BLD GAS TCO2 CT 25.1; ARTERIAL BLOOD GAS BASE EXCESS 0.4 (-2-2); ARTERIAL BLOOD GAS PCO2 35.1 mmHg (35-45); ARTERIAL BLOOD GAS PO2 91.3 mmHg (80-100); ARTERIAL BLOOD GAS pH 7.45 (7.35-7.45)
--- NOTE | 2021-06-12 06:20 | NUR ---
Patient sedation vacation not preformed. Patient able to awaken on current sedation and nod head, no other commands followed. Removed 575 of residual to discard per Dr. Szymanski and Amanda BAXTER. Gave ordered reglan. ABD xray pending.
--- NOTE | 2021-06-12 06:25 | NUR ---
Patient daughter provided with full update this AM.
[2021-06-12 06:26] LABS: HEMOGLOBIN 10.3 g/dl (12.5-16.0); MEAN CELL VOLUME 102 fl (80.0-100.0); MEAN CORPUSCULAR HEMOGLOBIN 34 pg (27-31); MEAN CORPUSCULAR HGB CONC 33 g/dl (33.0-37.0); MEAN PLATELET VOLUME 12.4 fl (7.4-10.4); PLATELET COUNT 164 K/mm3 (130-400); RED BLOOD COUNT 3.06 M/mm3 (4.10-5.30); REDCELL DISTRIBUTION WIDTH-CV 16.7 % (11.5-14.5)
[2021-06-12 06:28] LABS: CALCIUM 8.6 mg/dL (8.4-10.2); CREATININE, serum 1.31 mg/dL (0.57-1.11); MAGNESIUM 2.4 mg/dL (1.6-2.6); POTASSIUM 4.1 mmol/L (3.5-4.5)
[2021-06-12 06:37] LABS: HEMATOCRIT 31.2 % (37.0-47.0)
--- NOTE | 2021-06-12 07:00 | NUR ---
Pt is intubated and sedated. BP elevated and pt shaking head in bed. Sedation increased. Will continue to montior.
--- NOTE | 2021-06-12 07:13 | NUR ---
Report given to Mildred SHARP
[2021-06-12 07:29] LABS: BAND 5 % (0-10); METAMYELOCYTE 1 % (0-0); NUCLEATED RED BLOOD CELL 16 (0-6)
[2021-06-12 07:30] LABS: ANISOCYTOSIS 1+; HYPOCHROMIA 1+
[2021-06-12 07:31] LABS: LYMPHOCYTE 4 % (20.0-51.0); MYELOCYTE 2 % (0-0); NEUTROPHILS 86 % (42.0-75.2); TARGET CELLS 2+
--- NOTE | 2021-06-12 09:14 | NUR ---
SNEHAL BAXTER WITH NEPHROLOGY NOTIFIED OF CONSULT.
--- NOTE | 2021-06-12 09:47 | NUR ---
NOTIFIED OF HIGH RESIDUALS ON TUBE FEEDS AND ABD XRAY. WILL COME EVALUATE TODAY.
--- NOTE | 2021-06-12 17:00 | NUR ---
PT OPENS EYES TO TOUCH. PT MOVES ALL EXTREMETIES. PT DOESNT FOLLOW COMMANDS. WILL STOP SEDATION AND ATTEMPT VENT WEANING TRIAL TOMORROW AM PER .
--- NOTE | 2021-06-12 20:06 | NUR ---
TX GIVEN INLINE WITH VENT, TOLERATED WELL. ORAL CARE DONE AT THIS TIME. ETT SX CHECKED.
[2021-06-13] VITALS (1080 sets, daily range): BP systolic 106–162; BP diastolic 58–86; PULSE 77–88; TEMP 97–98.4; O2SAT 91–100
--- NOTE | 2021-06-13 05:23 | NUR ---
SEDATION VACATION BEGAN AT THIS TIME. TURNED OFF SEDATION GTTS. PT CURRENTLY -3 RASS, VSS. WILL CONTINUE TO CLOSELY MONITOR
[2021-06-13 05:33] LABS: MEAN CELL VOLUME 103 fl (80.0-100.0); MEAN CORPUSCULAR HGB CONC 32 g/dl (33.0-37.0); MEAN PLATELET VOLUME 12.4 fl (7.4-10.4); PLATELET COUNT 131 K/mm3 (130-400); REDCELL DISTRIBUTION WIDTH-CV 16.5 % (11.5-14.5)
[2021-06-13 05:39] LABS: HEMATOCRIT 28.8 % (37.0-47.0); HEMOGLOBIN 9.3 g/dl (12.5-16.0); MEAN CORPUSCULAR HEMOGLOBIN 33 pg (27-31)
[2021-06-13 05:51] LABS: CREATININE, serum 1.09 mg/dL (0.57-1.11); MAGNESIUM 2.6 mg/dL (1.6-2.6); PHOSPHOROUS 3.1 mg/dL (2.3-4.7); POTASSIUM 3.8 mmol/L (3.5-4.5)
--- NOTE | 2021-06-13 07:00 | NUR ---
PT STILL INTUBATED. SEDATION ON HOLD SINCE 0500 PER . PT OPENS EYES BUT DOESNT FOLLOW COMMANDS OR TRACK. BP ELEVATED IN THE 190'S. 0730- BEDSIDE AND VENT WEANING TRIAL ATTEMPTED. BP STILL ELEVATED. PT UNABLE TO TOLERATE VENT WEANING TRIAL. SEDATION RESTARTED. ORDERS RECEIVED FROM . WILL CONTINUE TO MONITOR.
--- NOTE | 2021-06-13 08:36 | NUR ---
INSULIN DRIP STOPPED AND LEVIMER GIVEN PER .
--- NOTE | 2021-06-13 11:00 | NUR ---
Order for PICC placement. I had an extensive conversation with patient's and his daughter regarding PICC placement. Dr. Lyons agreed with PICC placement. Explained the rationale for PICC placement which included the need for reliable vascular access, obtain blood for lab tests, and fluid monitoring, if indicated. Patient has a history of right breast cancer with radiation therapy. She did have an implanted port which has been removed. A pacemaker is located in her left upper chest. ? history of lymph node removal. Reviewed Dr. Estrada' post op note with only biopsy report. [facility] nurse contaced Dr. Mariano in regard to ? lymph node removal. He reported "it is whatever the family decides." Explained the risk of lymphedema vs. increased risk of infection with triple lumen placement. After all questions answered, both and daughter agreed with PICC placement. Explaine that we might not be successful due to above history. Consent form signed. No further questions.
[2021-06-13 11:40] LABS: ARTERIAL BLD GAS TCO2 CT 21.4; ARTERIAL BLOOD GAS BASE EXCESS -1.6 (-2-2); ARTERIAL BLOOD GAS HCO3 20.6 meq/L (22-26); ARTERIAL BLOOD GAS PCO2 27.4 mmHg (35-45); ARTERIAL BLOOD GAS PO2 80.2 mmHg (80-100); ARTERIAL BLOOD GAS pH 7.49 (7.35-7.45)
--- NOTE | 2021-06-13 12:59 | NUR ---
SW attended rounding on this patient this morning with physician. Also in attendance is the patients RN, son Harvey, daughter Marie and Victoriano. Physician spoke to the family about the patients current status and events over the past 24 hrs. These meetings have been daily. All questions ansered by physician. After rounding Marie asks to speak with me. Marie asked what my role was. Educated both her and the patients on the SW role within the care team and reviewed what the physician discussed with the family. Clearly stated that i was not an RN as the family was asking medical questions. Encouraged them to reach out to the patients RN for these answers. At this time the son is in the room with the patient. Informed both the daughter and what the ocean transportation intermediary road would look like in the event the patient got a trach/peg. Educated them that if the patient got to that point we would be looking at a transfer to an LTAC. The daughter inquires about hiring round the clock care and bringing the patient home. Educated her that this was not an option and reasoning provided. Daughter then inquires about what hospice actually is. Provided education on hospice and facility vs. home options. At this time the patients son came back into room. Both he and the daughter start expressing frustrations with the current visitor policy. They are understanding of why the policy is in place but expressed a strong desire to have other family members present. Informed them that i would speak to both house and the community living coach about additional visitors. Family is provided my phone number for additional concerns. Spoke with ICU director about the families concerns. Agreement made that the patient can have a total of 4 visitors during the day broken up into sets of two 4 hours time blocks. Only the two visitors can be in the hospital during that time frame. ICU director is going to let both house and the family know.
--- NOTE | 2021-06-13 17:00 | NUR ---
NO SEDATION VACATION AT THIS TIME. PT HAD A SEDATION VACATION PREVIOUSLY IN THE SHIFT. WILL SHAINA TO MONITOR..
--- NOTE | 2021-06-13 21:31 | NUR ---
pATIENT WILL OPEN EYES TO VERBAL STIMULATION/WITH DRAWAL FROM PAIN/ AND BACK TO SLEEP
[2021-06-14] VITALS (1438 sets, daily range): BP systolic 97–168; BP diastolic 55–84; PULSE 75–81; TEMP 97.6–98; O2SAT 93–100
[2021-06-14 05:01] LABS: MEAN CELL VOLUME 104 fl (80.0-100.0); MEAN CORPUSCULAR HGB CONC 32 g/dl (33.0-37.0); MEAN PLATELET VOLUME 13.4 fl (7.4-10.4); PLATELET COUNT 135 K/mm3 (130-400); RED BLOOD COUNT 2.57 M/mm3 (4.10-5.30); REDCELL DISTRIBUTION WIDTH-CV 17.7 % (11.5-14.5)
[2021-06-14 05:04] LABS: ARTERIAL BLD GAS O2 SATURATION 96.7 % (92-100); ARTERIAL BLD GAS TCO2 CT 23.5; ARTERIAL BLOOD GAS BASE EXCESS -1.5 (-2-2); ARTERIAL BLOOD GAS HCO3 22.5 meq/L (22-26); ARTERIAL BLOOD GAS PCO2 34.8 mmHg (35-45); ARTERIAL BLOOD GAS PO2 94.2 mmHg (80-100); ARTERIAL BLOOD GAS pH 7.43 (7.35-7.45)
[2021-06-14 05:08] LABS: CALCIUM 7.6 mg/dL (8.4-10.2); CREATININE, serum 1.06 mg/dL (0.57-1.11); MAGNESIUM 2.7 mg/dL (1.6-2.6); POTASSIUM 4.3 mmol/L (3.5-4.5)
[2021-06-14 05:09] LABS: HEMATOCRIT 26.8 % (37.0-47.0); HEMOGLOBIN 8.6 g/dl (12.5-16.0); MEAN CORPUSCULAR HEMOGLOBIN 33 pg (27-31)
--- NOTE | 2021-06-14 05:47 | NUR ---
PATIENT WILL OPEN EYES ON COMMAND, MOVES LIMBS INVOLUNTARY
--- NOTE | 2021-06-14 07:45 | NUR ---
Patient opens eyes to speech but not following other commands. Assessment completed. Assisted with repositioning. Will continue to monitor.
--- NOTE | 2021-06-14 14:00 | NUR ---
Sedation discontinued at this time per Dr. Mariano. Will administer Versed and Fentanyl PRN via push.
[2021-06-15] VITALS (1398 sets, daily range): BP systolic 85–155; BP diastolic 47–74; PULSE 76–87; TEMP 97.4–99.2; O2SAT 92–100
[2021-06-15 05:00] LABS: MEAN CELL VOLUME 104 fl (80.0-100.0); MEAN CORPUSCULAR HGB CONC 32 g/dl (33.0-37.0); PLATELET COUNT 142 K/mm3 (130-400); RED BLOOD COUNT 3.31 M/mm3 (4.10-5.30)
[2021-06-15 05:04] LABS: HEMATOCRIT 34.4 % (37.0-47.0); MEAN CORPUSCULAR HEMOGLOBIN 33 pg (27-31)
[2021-06-15 05:06] LABS: ARTERIAL BLOOD GAS BASE EXCESS -4.6 (-2-2); ARTERIAL BLOOD GAS PCO2 30.6 mmHg (35-45); ARTERIAL BLOOD GAS PO2 84.4 mmHg (80-100); ARTERIAL BLOOD GAS pH 7.41 (7.35-7.45)
[2021-06-15 05:41] LABS: CREATININE, serum 0.95 mg/dL (0.57-1.11); MAGNESIUM 2.8 mg/dL (1.6-2.6); PHOSPHOROUS 4.3 mg/dL (2.3-4.7); POTASSIUM 4.6 mmol/L (3.5-4.5)
[2021-06-15 06:24] LABS: BAND 2 % (0-10); EOSINOPHIL 1 % (0-4); LYMPHOCYTE 2 % (20.0-51.0); METAMYELOCYTE 1 % (0-0); NEUTROPHILS 92 % (42.0-75.2); NUCLEATED RED BLOOD CELL 8 (0-6)
[2021-06-15 06:29] LABS: TARGET CELLS 2+
[2021-06-15 06:32] LABS: ANISOCYTOSIS 1+; HYPOCHROMIA 2+; OVALOCYTES 1+; PLATELET ESTIMATE NORMAL (NORMAL)
--- NOTE | 2021-06-15 06:39 | NUR ---
PATIENT NOT SEDATION OR PAIN MEDICATION LAST RECIEVED FENTAYL AT 0200 AND VERSED AT 2230
[2021-06-15 06:44] LABS: ALBUMIN 2.4 gm/dL (3.4-4.8); CALCIUM 7.9 mg/dL (8.4-10.2); CREATININE, serum 0.97 mg/dL (0.57-1.11); POTASSIUM 4.6 mmol/L (3.5-4.5); TOTAL PROTEIN 5.5 gm/dL (6.2-8.1)
[2021-06-15 06:53] LABS: MEAN CELL VOLUME 102 fl (80.0-100.0); MEAN CORPUSCULAR HEMOGLOBIN 33 pg (27-31); MEAN CORPUSCULAR HGB CONC 33 g/dl (33.0-37.0); MEAN PLATELET VOLUME 13.6 fl (7.4-10.4); PLATELET COUNT 126 K/mm3 (130-400); REDCELL DISTRIBUTION WIDTH-CV 18.1 % (11.5-14.5)
[2021-06-15 07:35] LABS: HEMATOCRIT 33.6 % (37.0-47.0)
--- NOTE | 2021-06-15 07:45 | NUR ---
Patient not observed moving extremities; wrist restraints removed at this time.
[2021-06-15 08:02] LABS: THYROID STIMULATING HORMONE 8.846 uIU/mL (0.350-4.940)
--- NOTE | 2021-06-15 08:15 | NUR ---
Dr. Wang notified about latest lab values. ALso notified about high OG residual which is dark greenish brown and foul smelling. Instructed to notify Dr. Mariano when he arrives to the unit.
[2021-06-15 08:27] LABS: ANISOCYTOSIS 2+; BAND 0 % (0-10); LYMPHOCYTE 4 % (20.0-51.0); NEUTROPHILS 94 % (42.0-75.2); NUCLEATED RED BLOOD CELL 9 (0-6); PLATELET ESTIMATE DECREASED (NORMAL)
--- NOTE | 2021-06-15 11:00 | NUR ---
Dr. Mariano updated on patient status. Notified that patient now has uneven pupils with the right larger than the left. Both are brisk and reactive to light. Patient is also breathing at a rate of around 30 and appears more labored. Also notified of the change in gastric residual noted this morning. Will obtain a head/chest and abdominal CT.
--- NOTE | 2021-06-15 14:00 | NUR ---
Family at bedside throughout the shift. Consulted physicians and nurses educated family extensively on plan of care and all medications received and treatments scheduled.
--- NOTE | 2021-06-15 14:13 | NUR ---
Dr. Hernandez at bedside to see patient.
--- NOTE | 2021-06-15 15:57 | NUR ---
VEE Bob notified about low urine output throughout the shift despite one time dose of lasix administration. No new orders at this time; will continue to monitor.
--- NOTE | 2021-06-15 18:14 | NUR ---
Clarified with Dr. Hernandez that nursing staff is ok to use OG for medication and fluid administration as needed and otherwise on LIS.
--- NOTE | 2021-06-15 18:29 | NUR ---
Patient not on sedation medication.
[2021-06-15 22:28] LABS: MUCOUS Present (NOT PRESENT); PH 5 (5-8); SQUAMOUS EPITHELIAL None Seen /hpf (0-10); URINE APPEARANCE Cloudy (CLEAR/HAZY); URINE BACTERIA Rare /hpf (NONE SEEN); URINE BILIRUBIN Negative (NEGATIVE); URINE BLOOD 1+ (NEGATIVE); URINE COLOR Amber (YELLOW); URINE GLUCOSE Negative (NEGATIVE); URINE KETONE Trace (NEGATIVE); URINE LEUKOCYTE ESTERASE Negative (NEGATIVE); URINE NITRATE Negative (NEGATIVE); URINE PROTEIN(semi-quant) 1+ (NEGATIVE); URINE UROBILINOGEN Negative (NEGATIVE)
[2021-06-15 22:42] LABS: COLLECTION METHOD CATHETER
[2021-06-16] VITALS (1033 sets, daily range): BP systolic 91–118; BP diastolic 45–53; PULSE 67–86; TEMP 97.8–100.1; O2SAT 36–100
--- NOTE | 2021-06-16 | NUR ---
APPOXIMATELY 1 HOUR CONVERSATION WITH PT'S DAUGHTERJAVI REGARDING CURRENT STATUS, LASIX ADMINISTRATION AND PLAN OF CARE. EXTENDED DISCUSSION ABOUT GOALS OF CARE AND FAMILY DECISIONS. IN DISCUSSION, FAMILY MEMBER STATED THAT HERSELF AND HER FATHER (PT'S ) DECIDED THEY DO NOT WANT COMPRESSIONS DONE IN THE EVENT PT LOSES A PULSE. THEY ARE OK WITH TWO SHOCKS INDICATED BY ACLS, AND CONTINUED MEDICAL SUPPORT. WILL DISCUSS WITH VEE MARRERO TO UPDATE ORDER IN CHART. DISCUSSED WITH DAUGHTER VISITING REGULATIONS AND PROCESS IN THE EVENT THAT PATIENT DETIORATED OR FAMILY DECIDED TO WITHDRAW CARE, STATES UNDERSTANDING. ENCOURAGED DAUGHTER TO HAVE EXTENDED FAMILY MEETING WITH DR. VAUGHN ABOUT PROGNOSIS, GOALS AND EXPECTATIONS FOR PT BEFORE POSSIBLE TRACH AND PEG PLACEMENT. DISCUSSED AND EXPLAINED THOSE PROCEDURES AND WHY INDICATED. JAVI THANKED THIS RN FOR THE DISCUSSION AND ADVICE, STATES WILL CONTINUE TO DISCUSS WITH IMMEDIATE AND EXTENDED FAMILY, THEIR ULTIMATE GOAL IS TO HAVE PT BE COMFORTABLE. SHE STATES, IF SHE WILL PASS, WE DONT WANT TO KEEP HER SUFFERING LIKE THIS. EXPLAINED THAT THIS RN DOES NOT KNOW PROGNOSIS, AND ALL CARE WILL CONTINUE INDICATED UP TO THE POINT OF PT LOSING PULSE. AGAIN, FAMILY STATES UNDERSTANDING.
[2021-06-16 04:49] LABS: HEMOGLOBIN 10.1 g/dl (12.5-16.0); MEAN CELL VOLUME 104 fl (80.0-100.0); MEAN CORPUSCULAR HEMOGLOBIN 33 pg (27-31); MEAN CORPUSCULAR HGB CONC 32 g/dl (33.0-37.0); PLATELET COUNT 111 K/mm3 (130-400); RED BLOOD COUNT 3.07 M/mm3 (4.10-5.30); REDCELL DISTRIBUTION WIDTH-CV 18.8 % (11.5-14.5)
[2021-06-16 05:01] LABS: HEMATOCRIT 31.8 % (37.0-47.0)
[2021-06-16 05:12] LABS: ALBUMIN 1.9 gm/dL (3.4-4.8); CALCIUM 7.5 mg/dL (8.4-10.2); CREATININE, serum 1.83 mg/dL (0.57-1.11); PHOSPHOROUS 6.3 mg/dL (2.3-4.7); TOTAL PROTEIN 5.2 gm/dL (6.2-8.1)
[2021-06-16 05:18] LABS: BAND 6 % (0-10); LYMPHOCYTE 6 % (20.0-51.0); NEUTROPHILS 88 % (42.0-75.2)
[2021-06-16 05:19] LABS: OVALOCYTES 1+; SCHISTOCYTES 1+; TEAR DROP CELLS 1+
[2021-06-16 05:38] LABS: ARTERIAL BLD GAS O2 SATURATION 93.9 % (92-100); ARTERIAL BLD GAS TCO2 CT 14.9; ARTERIAL BLOOD GAS BASE EXCESS -11.2 (-2-2); ARTERIAL BLOOD GAS PCO2 29.2 mmHg (35-45); ARTERIAL BLOOD GAS PO2 77.1 mmHg (80-100)
--- NOTE | 2021-06-16 08:19 | NUR ---
PATIENT HAS VERY LABORED BREATHING THIS MORNING; BLOOD PRESSURES ARE SOFT BUT PATIENT IS ON LEVO AND WILL GO UP IF NECESSARY. TPN IS RUNNING AND OG IS SET TO LOW-INTERMITTENT SUCTION WITH BROWNISH COLORED OUTPUT. PATIENT IS NOT PRODUCING URINE THIS MORNING.
--- NOTE | 2021-06-16 18:54 | NUR ---
Pt extubated as ordered at this time. Family and RN x 2 at bedside.
--- NOTE | 2021-06-16 19:08 | NUR ---
PT PRONOUCED BY THIS RN AND HAWK ROBBINS RN AT 190. FAMILY AT BEDSIDE. PROVIDER NOTIFIED.
--- NOTE | 2021-06-16 19:30 | NUR ---
PATIENT EXTUBATED THIS AFTERNOON AT 1842 AND WAS GIVEN ATIVAN AND MORPHINE PER COMFORT CARE ORDERS. PATIENT'S FAMILY WAS IN THE ROOM AND THEY STAYED UNTIL THE PATIENT PASSED AT 1908. TIME OF WAS VERIFIED BY MYSELF, ARON ORR, AND ARON HORNER. PER MIX MILL TENDER'R INSTRUCTIONS, PICC AND CENTRAL LINES ARE TO REMAIN IN PLACE PER HER CONVERSATION WITH THE HOME.
--- NOTE | 2021-06-16 20:50 | NUR ---
HOME PRESENT TO CLOCK SMITH PT. HAS TALKED TO PT'S FAMILY. ROSENDA TLC AND AUSTYN PICC LEFT IN PLACE PER HOME REQUEST.
== END 2021-06-16 20:50 | disposition expired | DRG 207 ==
LOC: COL.ER 04:49 → ICU 06:53 → COL.ER 06:53 → ICU 06-07 12:00
PROVIDERS: Emergency Medicine; Family Medicine; Internal Medicine; Internal Medicine Critical Care Medicine; Internal Medicine Gastroenterology; Internal Medicine Pulmonary Disease; ADMIT Student in an Organized Health Care Education/Training Program
PROC: 5A09357 Assistance with Respiratory Ventilation, Less than 24 Consecutive Hours, Continuous Positive Airway Pressure (ICD-10-PCS; 2021-06-05)
PROC: 0BH17EZ Insertion of Endotracheal Airway into Trachea, Via Natural or Artificial Opening (ICD-10-PCS; principal; 2021-06-07)
PROC: 5A1955Z Respiratory Ventilation, Greater than 96 Consecutive Hours (ICD-10-PCS; 2021-06-07)
PROC: 05HM33Z Insertion of Infusion Device into Right Internal Jugular Vein, Percutaneous Approach (ICD-10-PCS; 2021-06-07)
PROC: 0W993ZX Drainage of Right Pleural Cavity, Percutaneous Approach, Diagnostic (ICD-10-PCS; 2021-06-09)
PROC: 02HV33Z Insertion of Infusion Device into Superior Vena Cava, Percutaneous Approach (ICD-10-PCS; 2021-06-13)
DX: J90 Pleural effusion, not elsewhere classified (principal); J18.9 Pneumonia, unspecified organism; J96.01 Acute respiratory failure with hypoxia; A41.9 Sepsis, unspecified organism; C79.51 Secondary malignant neoplasm of bone; C78.00 Secondary malignant neoplasm of unspecified lung; I48.20 Chronic atrial fibrillation, unspecified; K56.609 Unspecified intestinal obstruction, unspecified as to partial versus complete obstruction; Z66 Do not resuscitate; Z51.5 Encounter for palliative care; K56.7 Ileus, unspecified; E44.0 Moderate protein-calorie malnutrition; R18.8 Other ascites; E87.0 Hyperosmolality and hypernatremia; I25.10 Atherosclerotic heart disease of native coronary artery without angina pectoris; I12.9 Hypertensive chronic kidney disease with stage 1 through stage 4 chronic kidney disease, or unspecified chronic kidney disease; N18.2 Chronic kidney disease, stage 2 (mild); K31.819 Angiodysplasia of stomach and duodenum without bleeding; I65.29 Occlusion and stenosis of unspecified carotid artery; J38.00 Paralysis of vocal cords and larynx, unspecified; I08.1 Rheumatic disorders of both mitral and tricuspid valves; R91.1 Solitary pulmonary nodule; I27.20 Pulmonary hypertension, unspecified; D69.6 Thrombocytopenia, unspecified; R73.9 Hyperglycemia, unspecified; E88.09 Other disorders of plasma-protein metabolism, not elsewhere classified; G89.29 Other chronic pain; M25.551 Pain in right hip; Z68.24 Body mass index [BMI] 24.0-24.9, adult; R63.4 Abnormal weight loss; Z79.82 Long term (current) use of aspirin; Z95.0 Presence of cardiac pacemaker; Z95.5 Presence of coronary angioplasty implant and graft; Z92.3 Personal history of irradiation; Z85.3 Personal history of malignant neoplasm of breast; Z88.8 Allergy status to other drugs, medicaments and biological substances; Z88.5 Allergy status to narcotic agent
CPT/HCPCS: 99223-AI; 99233-AI; 99239; C1751; C9113; J0360; J0456; J0610; J1100; J1450; J1644; J1815; J1940; J1953; J2060; J2212; J2250; J2270; J2405; J2543; J2704; J2765; J3010; J3370; J3411; J3475; J7030; J7040; J7050; J7060; J7120; P9047; Q9967